=== PATIENT | male | born 1970 | race Caucasian/White ===

== ENCOUNTER 2021-02-25 21:52 | Emergency (ER) | payer MEDICAID ==
[~2021-02-25] VITALS: Ht 175.3 cm; Wt 84.1 kg
[2021-02-25 22:45] VITALS: BP 144/103
== END 2021-02-26 03:30 | disposition left against medical advice (07) ==
LOC: ER 21:53
DX: M25.511 Pain in right shoulder (principal); M79.10 Myalgia, unspecified site; Z53.21 Procedure and treatment not carried out due to patient leaving prior to being seen by health care provider